=== PATIENT | male | born 1970 ===

== ENCOUNTER 2020-07-16 08:00 | Outpatient (CLI) | payer OTHER | END 2020-07-16 15:00 | disposition home or self-care (01) | LOC: LAB 08:00 → CIR.AMB 08:15 → EDSTATUS 08:15 → ADM 08:15 → LAB 15:00 | PROVIDERS: ATTEND Surgery | DX: Z20.828 Contact with and (suspected) exposure to other viral communicable diseases (principal); R22.2 Localized swelling, mass and lump, trunk; Z01.811 Encounter for preprocedural respiratory examination ==